=== PATIENT | female | born 1995 ===

== ENCOUNTER 2018-11-05 14:55 | Inpatient (IN) | payer SELFPAY ==
[~2018-11-05] VITALS: Ht 167.6 cm; Wt 77.3 kg
[2018-11-05] MEDS ORDERED: DiphenhydrAMINE HCL 50 MG/ML VIAL IVP STA (15:17)
[2018-11-05 15:26] LABS: GLUCOSE,POINT OF CARE 65 MG/DL (70-110)
[2018-11-05] MEDS ORDERED: DEXTROSE 50%-WATER 25 GM/50 ML SYRINGE IVP ONE (15:30)
[2018-11-05] MEDS ORDERED: METOCLOPRAMIDE HCL 5 MG/ML 2 ML VIAL IVP ONE (15:30)
[2018-11-05] MEDS ORDERED: LOPERAMIDE HCL 2 MG CAPSULE PO PRN (17:15)
[2018-11-05] MEDS ORDERED: MAG HYDROX/AL HYDROX/SIMETH ES 30 ML SUSPENSION UDCUP PO PRN (17:15)
[2018-11-05] MEDS ORDERED: GuaiFENesin/D-METHORPHAN [SUGAR-FREE] 200-20MG/10 ML SYRUP UDCUP PO PRN (17:15)
[2018-11-05] MEDS ORDERED: ACETAMINOPHEN 325 MG TABLET PO PRN (17:15)
[2018-11-05] MEDS ORDERED: MAGNESIUM HYDROXIDE SUSPENSION 30 ML UDCUP PO PRN (17:15)
[2018-11-05] MEDS ORDERED: OLANZapine 5 MG RAPDIS TABLET PO PRN (17:15)
[2018-11-05] MEDS ORDERED: ZOLPIDEM TARTRATE 10 MG TABLET PO PRN (17:15)
[2018-11-05] MEDS ORDERED: HydrOXYzine PAMOATE 50 MG CAPSULE PO PRN (17:15)
[2018-11-05] MEDS ORDERED: LORazepam 2 MG TABLET PO PRN (17:15)
[2018-11-05 17:49] LABS: AMPHET/METH SCREEN,URINE POSITIVE (NEGATIVE); BARBITURATE SCREEN, URINE NEGATIVE (NEGATIVE); BENZODIAZEPINES SCREEN,URINE POSITIVE (NEGATIVE); CANNABINOID SCREEN,URINE POSITIVE (NEGATIVE); COCAINE SCREEN,URINE POSITIVE (NEGATIVE); METHADONE SCREEN, URINE NEGATIVE (NEGATIVE); OPIATE SCREEN,URINE NEGATIVE (NEGATIVE); PHENCYCLIDINE SCREEN,URINE NEGATIVE (NEGATIVE)
[2018-11-05] MEDS ORDERED: HALOPERIDOL LACTATE 5 MG/ML VIAL IM ONE (19:00)
[2018-11-05] MEDS ORDERED: DiphenhydrAMINE HCL 50 MG/ML VIAL IM ONE (19:00)
[2018-11-05] MEDS ORDERED: LORazepam 2 MG/ML VIAL IM ONE (19:00)
[2018-11-05 19:25] LABS: GLUCOSE,POINT OF CARE 115 MG/DL (70-110)
[2018-11-05] MEDS: THIAMINE HCL 100 MG TABLET PO SCH (19:35)
[2018-11-05] MEDS: OLANZapine 5 MG RAPDIS TABLET PO SCH (21:00)
[2018-11-06 08:41] LABS: ALANINE AMINOTRANSFERASE 18 U/L (12-78); ALBUMIN 3.2 g/dL (3.4-5.0); ALKALINE PHOSPHATASE 54 U/L (46-116); ANION GAP 17 mmol/L (8-16); ASPARTATE AMINOTRANSFERASE 21 U/L (15-37); BILIRUBIN,TOTAL 0.7 mg/dL (0.1-1.0); CARBON DIOXIDE 18 mmol/L (22-29); CHLORIDE 104 mmol/L (98-107); CHOL/HDL RATIO 1.5 (3.9-5.7); CHOLESTEROL 127 mg/dL (131-200); FREE T4 (FREE THYROXINE) 1.02 ng/dL (0.76-1.46); GLOMERULAR FILTR. RATE CALC > 60 mL/min (>60); GLUCOSE,RANDOM 79 mg/dL (70-110); HCG,QUANTITATIVE < 1 mIU/mL (0-6); HDL CHOLESTEROL 83 mg/dL (40-60); LDL CHOL (CALC.) 35 mg/dL (0-130); POTASSIUM 4.1 mmol/L (3.5-5.1); SODIUM SERUM 139 mmol/L (136-145); THYROID STIMULATING HORMONE 0.68 uIU/mL (0.36-3.74); TOTAL PROTEIN, SERUM 6.2 g/dL (6.4-8.2); TRIGLYCERIDES 46 mg/dL (15-150)
[2018-11-06] MEDS: THIAMINE HCL 100 MG TABLET PO SCH ×2 (09:00→17:00)
[2018-11-06] MEDS: FOLIC ACID 1 MG TABLET PO SCH (09:00)
[2018-11-06] MEDS: MULTIVITAMINS WITH MINERALS, THERAPEUTIC TABLET PO SCH (09:00)
[2018-11-06 09:05] LABS: UREA NITROGEN, BLOOD 10 mg/dL (7-18)
[2018-11-06] MEDS: OLANZapine 5 MG RAPDIS TABLET PO SCH (20:37)
[2018-11-07] MEDS: MULTIVITAMINS WITH MINERALS, THERAPEUTIC TABLET PO SCH (09:00)
[2018-11-07] MEDS: FOLIC ACID 1 MG TABLET PO SCH (09:00)
[2018-11-07] MEDS: THIAMINE HCL 100 MG TABLET PO SCH ×2 (09:00→16:49)
[2018-11-07] MEDS ORDERED: NALT50TA PO (10:43)
[2018-11-07] MEDS ORDERED: OLAN5TAB30 PO (10:43)
[2018-11-07] MEDS: OLANZapine 5 MG RAPDIS TABLET PO SCH (20:20)
[2018-11-08] MEDS: THIAMINE HCL 100 MG TABLET PO SCH (09:00)
[2018-11-08] MEDS: FOLIC ACID 1 MG TABLET PO SCH (09:00)
[2018-11-08] MEDS: MULTIVITAMINS WITH MINERALS, THERAPEUTIC TABLET PO SCH (09:00)
[2018-11-08] MEDS ORDERED: NALTREXONE HCL 50 MG TABLET PO SCH (09:00)
[2018-11-08 09:35] VITALS: BP 127/69
== END 2018-11-08 12:30 | disposition home or self-care (01) | DRG 885 ==
LOC: EMS 14:57 → 3EC 18:40
PROVIDERS: ADMIT Psychiatry & Neurology Psychiatry; ATTEND Psychiatry & Neurology Psychiatry
DX: F29 Unspecified psychosis not due to a substance or known physiological condition (principal); F19.10 Other psychoactive substance abuse, uncomplicated; Z88.8 Allergy status to other drugs, medicaments and biological substances; Z59.0 Homelessness
CPT/HCPCS: 84439; 84443; 96372; 99291; G0480; J1200; J1630; J2060